=== PATIENT | male | born 1970 | race African-American/Black ===

== ENCOUNTER 2017-03-31 19:32 | Emergency (ER) | payer OTHER ==
[~2017-03-31] VITALS: Ht 180.3 cm; Wt 103.3 kg
[2017-03-31 19:35] VITALS: TEMP 36.6; Ht 180.3 cm; Wt 103.3 kg
[2017-03-31] MEDS ORDERED: LISINOPRIL 10 MG TAB PO STA (19:44)
[2017-03-31] MEDS ORDERED: ALBUT/IPRATROP 3MG/0.5MG NEB 3 ML VIAL INH STA (19:44)
[2017-03-31] MEDS ORDERED: LISINOPRIL 5 MG TAB ONE (19:52)
[2017-03-31] MEDS ORDERED: ALBU18002 INH (21:01)
[2017-03-31] MEDS ORDERED: LISI-461 PO ×2 (21:01→22:31)
[2017-03-31] MEDS ORDERED: LISINOPRIL 20 MG TAB PO STA (21:41)
[2017-03-31 22:21] VITALS: BP 172/129; PULSE 78; O2SAT 96
[2017-03-31] MEDS ORDERED: ALBUTEROL HFA 8 GM INHALER INH ONE (22:30)
[2017-03-31] MEDS ORDERED: AZITTAB PO (22:31)
[2017-03-31] MEDS ORDERED: HYDR1SUS2 PO (22:31)
--- NOTE | 2017-03-31 22:47 | EMERGENCY ROOM VISIT NOTE ---
History First contact with patient: 19:39 Chief Complaint: RESPIRATORY PROBLEMS Stated Complaint: ASTHMA Nursing Triage Summary: Pt c/o shortness of breath today. Hx of asthma. Traveling, from out of town. Does not have medications with him. History of Present Illness The patient is a 46 year old male who presents to the Emergency Room with complaints of chest tightness. The patient states that he has asthma and has been traveling and has not had his medications for the past 3 days. The patient states that he is going to be working in this area for the next 30 days. The patient states that he forgot his medications at home. He normally takes pro-air, Tussionex and lisinopril for his blood pressure. He has not taken any of these meds for the last 3 days. He also states when he is in this area his asthma is usually worse. The patient also states that he has had a congested cough intermittently for the last 2 days. The patient denies any head congestion, ear pain or sore throat. The patient denies any chest pain. Review of Systems 10 system review was performed and was negative unless stated otherwise history of present illness. Social History Smoking Status: Current Every Day Smoker Drug Use: none Occupation Status: employed Current/Historical Medications Scheduled Albuterol Sulfate (Proair Respiclick), 1 PUFF INH BID Azithromycin (Zithromax Z-Stevan), 0 PO UD Lisinopril (Zestril), Unknown Dose PO DAILY Lisinopril (Zestril), 10 MG PO DAILY Scheduled PRN Chlorphenir/Hydrocod Polistir (Tussionex), 5 ML PO BID PRN for Cough Allergies Coded Allergies: Shellfish Allergy (Unverified Allergy, Severe, ., 03/31/17) Physical Exam Vital Signs Date Time Temp Pulse Resp B/P (MAP) Pulse Ox O2 Delivery O2 Flow Rate FiO2 03/31/17 22:21 78 18 172/129 96 Room Air 03/31/17 21:32 86 16 168/131 97 Room Air 03/31/17 20:46 87 18 177/123 96 Room Air 03/31/17 19:35 36.6 98 20 162/124 95 Room Air Physical Exam PHYSICAL EXAM: Vital Signs normal: Temperature 36.6, blood pressure 162/24, pulse rate 98, respirations 20, pulse ox 95% on room air Reviewed Nurse's notes and agree. GENERAL: 46 year-old black male appears in no acute distress. MENTAL STATUS: Alert and oriented 3. EARS: Canals with some cerumen able to visualize partial TMs without erythema or fluid level. NOSE: Is a mucosa without erythema or engorgement. PHARYNX: No erythema or edema noted. LUNGS: Diffuse wheezing bilateral lung jin. No rales or rhonchi noted. CARDIAC: Regular rate and rhythm without murmur. Medical Decision & Procedures Medications Administered Medications (Trade) Dose Ordered Sig/Donna Route Start Time Stop Time Status Last Admin Dose Admin Albuterol/ Ipratropium (Duoneb) 3 ml NOW STAT INH 03/31/17 19:44 03/31/17 19:46 DC 03/31/17 19:55 3 ML Lisinopril (Zestril Tab) 10 mg STK-MED ONCE .ROUTE 03/31/17 19:52 03/31/17 19:53 DC 03/31/17 19:55 10 MG Lisinopril (Zestril Tab) 20 mg NOW STAT PO 03/31/17 21:41 03/31/17 21:42 DC 03/31/17 21:50 20 MG Albuterol (Ventolin Hfa Inhaler) 2 puffs NOW ONCE INH 03/31/17 22:30 03/31/17 22:31 DC 03/31/17 22:36 2 PUFFS ED Course The patient was evaluated. Since the patient has not had his blood pressure medicine for 3 days he was given his lisinopril 10 mg by mouth. The patient was given a DuoNeb. Post DuoNeb the patient was feeling much better. Reexamination revealed lungs clear to auscultation with only slight wheezing noted bilaterally. Good air exchange noted. The patient's blood pressure remained elevated throughout the patient's ER stay. He became more agitated the longer he had to stay and wait to recheck his blood pressure. I gave him additional 20 mg of lisinopril by mouth. The patient stated that he had a ride to go home and could not wait any longer. He stated if he had any symptoms of headache, visual changes, chest pain, dizziness he would return to the ER again. The patient was given a Ventolin HFA inhaler to take with him. The patient was discharged home in stable condition. Medical Decision Differential diagnosis include asthma exacerbation, bronchitis, pneumonia, URI Impression Primary Impression: Asthma exacerbation Additional Impression: Hypertension Departure Information Dispostion Home / Self-Care Condition GOOD Prescriptions Lisinopril (Zestril) 10 Mg Tab 10 MG PO DAILY for 30 Days, #30 TAB Prov: Ada Gutierrez PA-C 03/31/17 Chlorphenir/Hydrocod Polistir (Tussionex) Liqcr 5 ML PO BID Y for Cough for 12 Days, #120 ML Prov: Ada Gutierrez PA-C 03/31/17 Azithromycin (ZITHROMAX Z-STEVAN) 250 Mg Tab 0 PO UD, #1 PKT Prov: Ada Gutierrez PA-C 03/31/17 Referrals No Doctor, Assigned (PCP) Forms HOME CARE DOCUMENTATION FORM, IMPORTANT VISIT INFORMATION, WORK / SCHOOL INSTRUCTIONS Patient Instructions My [facility] [employer] Additional Instructions Take your lisinopril as prescribed. Take prednisone as prescribed. Take Zithromax as prescribed. Take Tussionex as prescribed. Use a Ventolin HFA inhaler 2 puffs every 4 hours as needed for chest tightness. If you experience any severe headache, chest pain, shortness of breath, dizziness or visual changes return to ER immediately. Problem Qualifiers Additional Impression: Hypertension Hypertension type: unspecified Qualified Codes: I10 - Essential (primary) hypertension
== END 2017-03-31 22:37 | disposition home or self-care (01) ==
LOC: C.EDB 19:34
DX: J45.909 Unspecified asthma, uncomplicated (principal); I10 Essential (primary) hypertension; F17.210 Nicotine dependence, cigarettes, uncomplicated; Z79.899 Other long term (current) drug therapy